=== PATIENT | female | born 1990 ===

== ENCOUNTER → 2017-05-03 | Outpatient (CLI) | payer OTHER ==
[2017-05-03 13:28] LABS: Specimen Source URINE
[2017-05-04 10:28] LABS: Source Urine
== END ==
LOC: LAB SRC 13:27
PROVIDERS: Physician Assistant
DX: R82.90 Unspecified abnormal findings in urine (principal); Z72.51 High risk heterosexual behavior
CPT/HCPCS: 87491; 87591